=== PATIENT | female | born 1955 | race Caucasian/White ===

== ENCOUNTER 2017-07-16 09:31 | Emergency (ER) | payer OTHER | END 2017-07-16 09:40 | disposition left against medical advice (07) | LOC: CED 09:31 | DX: Z53.21 Procedure and treatment not carried out due to patient leaving prior to being seen by health care provider (principal) ==

== ENCOUNTER 2018-04-04 20:18 | Inpatient (IN) | payer OTHER ==
[2018-04-04] MEDS ORDERED: CEFEPIME HCL 2 GM in NS 100 ML IV ONE (20:42)
[2018-04-04] MEDS ORDERED: NS 2,000 ML IV ONE (20:42)
[2018-04-04] MEDS ORDERED: VANCOMYCIN 1.5 GM in D5W 250 ML IV ONE (20:44)
[2018-04-04] MEDS ORDERED: ACETAMINOPHEN 500 MG TAB PO ONE (20:45)
[2018-04-04] MEDS ORDERED: IBUPROFEN 800 MG TAB PO ONE (20:45)
--- NOTE | 2018-04-04 20:45 | EDPHY ---
H & P Stated Complaint: fever 103F today, hx RLE cellulitis - Personal History Tetanus Vaccine Date: WITHIN 10 YRS - Medical/Surgical History Hx Asthma: No Hx Chronic Respiratory Disease: No Hx Diabetes: No Hx Cardiac Disease: No Hx Renal Disease: No Hx Cirrhosis: No Hx Alcoholism: No Hx HIV/AIDS: No Hx Splenectomy or Spleen Trauma: No Other PMH: HTN, BREAST/UTERINE CA HX. - Social History Smoking Status: Never smoked Time Seen by Provider: 04/04/18 20:34 HPI/ROS: CHIEF COMPLAINT: Cellulitis right lower extremity HISTORY OF PRESENT ILLNESS: 62-year-old female remote history of uterine and breast cancer, history of recurrent right lower extremity cellulitis, followed by Dr. Cris Trevizo, complaining of new onset erythema in the past 24-48 hours to her right lower extremity. Went to urgent care today, was referred to the ER. She is complaining of fever, , myalgias. Denies: URI symptoms, chest pain , cough, rhinorrhea, headache REVIEW OF SYSTEMS: 10 systems reviewed and negative with the exception of the elements mentioned in the history of present illness PAST MEDICAL & SURGICAL HISTORY: Uterine and breast cancer. Chronic lymphedema right lower extremity SOCIAL HISTORY: Nonsmoker . 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 PHYSICAL EXAM (Prior to examination, patient consented to physical exam, hands were washed and my usual and customary physical exam procedures followed) 1) GENERAL: Well-developed, well-nourished, alert and oriented. Appears to be in no acute distress. Answering questions appropriately 2) HEAD: Normocephalic, atraumatic 3) HEENT: Pupils equal, round, reactive to light bilaterally. Sclera anicteric. Nasopharynx, oropharynx, clear, no lesions. Moist Mucous membranes. No tonsillar enlargement or exudate Ears bilaterally with normal tympanic membranes. No signs of otitis media otitis externa 4) NECK: Full range of motion, no meningeal signs. 5) LUNGS: Clear auscultation bilaterally, no wheezes, no rhonchi, no retractions. 6) HEART: Regular rate and rhythm, no murmur, no heave, no gallop. 7) ABDOMEN: No guarding, no rebound, no focal tenderness, negative McBurney's, negative Fitzgerald's, negative Rovsing's, negative peritoneal sign, 8) MUSCULOSKELETAL: Right lower extremity: Diffuse erythema induration, increased warmth. Soft compartments. No crepitus. DP PT pulses present and brisk. Asymmetrical edema noted. Moving all extremities, no focal areas of tenderness, no obvious trauma. No peripheral edema or discoloration. 9) BACK: No CVA tenderness, no midline vertebral tenderness, no fluctuance, no step-off, no obvious trauma, no visual or palpable abnormality. 10) SKIN: No rash, no petechiae. 11) Psychiatric: Patient is oriented X 3, there is no agitation. DIFFERENTIAL DIAGNOSIS: In no particular order including but not limited to cellulitis, necrotizing fasciitis, abscess (Kayla,Mathieu Shana) Constitutional: Initial Vital Signs Temperature (C) 39.4 C H 04/04/18 20:27 Heart Rate 122 H 04/04/18 20:27 Respiratory Rate 20 04/04/18 20:27 Blood Pressure 113/80 04/04/18 20:27 O2 Sat (%) 96 04/04/18 20:27 O2 Delivery Mode Room Air Allergies/Adverse Reactions: carbamazepine [From Tegretol] Allergy (Mild, Verified 04/04/18 20:49) Home Medications: Medication Instructions Recorded Lisinopril/Hctz 10/12.5 mg 1 ea PO DAILY 12/31/09 [Zestoretic/Prinzide 10/12.5MG (*)] Cephalexin [Cephalexin] 500 mg PO Q6H 04/04/18 Herbals/Supplements -Info Only 1 ea PO DAILY 04/04/18 Medical Decision Making ED Course/Re-evaluation: Patient has severe sepsis. I saw her at 9:20 p.m.. I obtained history of recurrent leg cellulitis is the patient has chronic lymphedema after cancer treatments. Leg has become red over the last 24 hr. She tells me fever to 104 degrees. She had chills and rigors. She has no respiratory symptoms. Examination of the leg shows extensive swelling and erythema from foot to mid thigh. Vital signs show temp 39.4 and tachycardia. IV reviewed the laboratory findings with the patient. We discussed treatment plan and antibiotics. We discussed recommendation for admission. She expresses understanding and agreement. Blood pressure currently 126/61 with heart rate 104 after 30 milliliter/kilogram fluid bolus (Tanika,John S) 8:47 p.m.: Care of patient under supervision of secondary supervising physician Dr John Sagastume with whom I discussed case at this time. 9:19 pm : Lactate 2.3. Severe sepsis to cleared at this time. Care patient transferred to Dr. John Sagastume at this time. Consultation with hospitalist Dr. Jacinto since who will admit patient. Patient has been given cefuroxime, vancomycin, IV fluids. She is mentating clearly. (Mathieu Garza) Differential Diagnosis: This appears to be severe sepsis and cellulitis. Recurrent cellulitis with chronic lymphedema of her right lower extremity (John Sagastume) - Data Points Laboratory Results: Laboratory Results 04/04/18 20:50 04/04/18 20:50 04/04/18 04/04/18 04/04/18 20:50 20:50 20:50 WBC 9.08 10^3/uL 10^3/uL (3.80-9.50) RBC 4.00 10^6/uL L 10^6/uL (4.18-5.33) Hgb 13.3 g/dL g/dL (12.6-16.3) Hct 38.4 % % (38.0-47.0) MCV 96.0 fL fL (81.5-99.8) MCH 33.3 pg pg (27.9-34.1) MCHC 34.6 g/dL g/dL (32.4-36.7) RDW 13.4 % % (11.5-15.2) Plt Count 135 10^3/uL L 10^3/uL (150-400) MPV 10.6 fL fL (8.7-11.7) Neut % (Auto) Pending Lymph % (Auto) Pending [place] % (Auto) Pending Eos % (Auto) Pending Baso % (Auto) Pending Nucleat RBC Rel Count Pending Absolute Neuts (auto) Pending Absolute Lymphs (auto) Pending Absolute Monos (auto) Pending Absolute Eos (auto) Pending Absolute Basos (auto) Pending Absolute Nucleated RBC Pending Immature Gran % Pending Immature Gran # Pending Platelet Estimate Pending PT 12.7 SEC SEC (12.0-15.0) INR 0.93 (0.83-1.16) APTT 28.1 SEC SEC (23.0-38.0) VBG Lactic Acid Sodium 129 mEq/L L mEq/L (135-145) Potassium 3.9 mEq/L mEq/L (3.5-5.2) Chloride 100 mEq/L mEq/L (97-110) Carbon Dioxide 23 mEq/l mEq/l (22-31) Anion Gap 6 mEq/L mEq/L (6-14) BUN 20 mg/dL mg/dL (7-23) Creatinine 0.8 mg/dL mg/dL (0.6-1.0) Estimated GFR > 60 Glucose 128 mg/dL H mg/dL (70-100) Calcium 8.9 mg/dL mg/dL (8.5-10.4) Total Bilirubin 1.4 mg/dL mg/dL (0.1-1.4) 04/04/18 20:50 WBC RBC Hgb Hct MCV MCH MCHC RDW Plt Count MPV Neut % (Auto) Lymph % (Auto) [place] % (Auto) Eos % (Auto) Baso % (Auto) Nucleat RBC Rel Count Absolute Neuts (auto) Absolute Lymphs (auto) Absolute Monos (auto) Absolute Eos (auto) Absolute Basos (auto) Absolute Nucleated RBC Immature Gran % Immature Gran # Platelet Estimate PT INR APTT VBG Lactic Acid 2.3 mmol/L H mmol/L (0.7-2.1) Sodium Potassium Chloride Carbon Dioxide Anion Gap BUN Creatinine Estimated GFR Glucose Calcium Total Bilirubin Medications Given: Discontinued Medications Acetaminophen (Tylenol) 1,000 mg PO EDNOW ONE Stop: 04/04/18 20:46 Last Admin: 04/04/18 21:04 Dose: 1,000 mg Cefepime HCl 2 gm/ Sodium (Chloride) 100 mls @ 200 mls/hr IV EDNOW ONE PRN Reason: Protocol Stop: 04/04/18 21:11 Last Admin: 04/04/18 21:21 Dose: 100 mls Sodium Chloride (Ns) 2,000 mls @ 4,000 mls/hr 30 ml/kg infuse over 30 min ( 2000 ml) IV EDNOW ONE PRN Reason: Protocol Stop: 04/04/18 21:11 Last Admin: 04/04/18 21:04 Dose: 2,000 mls Ibuprofen (Motrin) 800 mg PO EDNOW ONE Stop: 04/04/18 20:46 Last Admin: 04/04/18 21:04 Dose: 800 mg Departure - Departure Disposition: [facility] Inpatient Acute Clinical Impression: Severe sepsis Cellulitis Qualifiers: Site of cellulitis: extremity Site of cellulitis of extremity: lower extremity Laterality: right Qualified Code(s): L03.115 - Cellulitis of right lower limb Condition: Fair
[2018-04-04 21:17] LABS: INR 0.93 (0.83-1.16); PLATELET COUNT 135 10^3/uL (150-400); PROTIME(PATIENT) 12.7 SEC (12.0-15.0)
[2018-04-04] MEDS ORDERED: ONDANSETRON DISINTEGRATING 4 MG TAB PO PRN (22:24)
[2018-04-04] MEDS ORDERED: ONDANSETRON 4 MG/2 ML VIAL IVP PRN (22:24)
--- NOTE | 2018-04-04 23:31 | PDGENHP ---
History and Physical - Chief Complaint R leg redness - History of Present Illness 62 yo F w/ hx of HTN, breast/uterine CA and LE lymphedema leading to recurrent RLE infections presents w/ R leg redness, fevers, and chills. The patient tells me her symptoms started this morning when she noticed R leg redness. Her symptoms progressed quickly to involve fever and shaking chills. The redness has progressed to involve the majority of her R leg, which she tells me is usual for bouts of cellulitis for her. Her last two bouts were in March and December of 2017. Both of these episodes were treated with oral Augmentin. She denies prior hx of MRSA. In the ED her evaluation was notable for tachycardia, fever, and elevated lactate. At the time of my evaluation she is feeling improved with minimal symptoms of fever/warmth. Case discussed with Dr. Mccormick; records reviewed and summarized above. History Information - Allergies/Home Medication List Allergies/Adverse Reactions: carbamazepine [From Tegretol] Allergy (Mild, Verified 04/04/18 20:49) Home Medications: Lisinopril/Hctz 10/12.5 mg [Zestoretic/Prinzide 10/12.5MG (*)] 1 ea PO DAILY 31/12 [Last Taken 04/04/18] Cephalexin [Cephalexin] 500 mg PO Q6H 04/04/18 [Last Taken 04/04/18 12:00] Herbals/Supplements -Info Only 1 ea PO DAILY 04/04/18 [Last Taken 04/04/18] I have personally reviewed and updated: family history, medical history - Past Medical History cancer, hypertension Additional medical history: Lymphedema. Recurrent RLE infections - Surgical History Reports: hysterectomy Additional surgical history: Lumpectomy - Family History Positive for: cancer - Social History Smoking Status: Never smoked Review of Systems Review of Systems: ROS: 10pt was reviewed & negative except for what was stated in HPI & below Physical Exam Physical Exam: Temp Pulse Resp BP Pulse Ox 37.6 C 100 16 120/47 L 93 04/04/18 22:59 04/04/18 22:59 04/04/18 22:59 04/04/18 22:59 04/04/18 22:59 Constitutional: no apparent distress, appears nourished Eyes: PERRL, EOMI Ears, Nose, Mouth, Throat: moist mucous membranes, no oral mucosal ulcers Cardiovascular: no murmur, rub, or gallop, tachycardia Respiratory: no respiratory distress, clear to auscultation Gastrointestinal: normoactive bowel sounds, soft, non-tender abdomen Skin: warm, no fluctuance, erythema (R leg to upper thigh) Musculoskeletal: full muscle strength, no muscle tenderness Neurologic: AAOx3, CN II-XII Intact Psychiatric: interacting appropriately, not anxious Lab Data & Imaging Review 04/04/18 20:50 04/04/18 20:50 WBC 9.08 10^3/uL (3.80-9.50) 04/04/18 20:50 RBC 4.00 10^6/uL (4.18-5.33) L 04/04/18 20:50 Hgb 13.3 g/dL (12.6-16.3) 04/04/18 20:50 Hct 38.4 % (38.0-47.0) 04/04/18 20:50 MCV 96.0 fL (81.5-99.8) 04/04/18 20:50 MCH 33.3 pg (27.9-34.1) 04/04/18 20:50 MCHC 34.6 g/dL (32.4-36.7) 04/04/18 20:50 RDW 13.4 % (11.5-15.2) 04/04/18 20:50 Plt Count 135 10^3/uL (150-400) L 04/04/18 20:50 MPV 10.6 fL (8.7-11.7) 04/04/18 20:50 Neut % (Auto) Not Reported 04/04/18 20:50 Lymph % (Auto) Not Reported 04/04/18 20:50 [place] % (Auto) Not Reported 04/04/18 20:50 Eos % (Auto) Not Reported 04/04/18 20:50 Baso % (Auto) Not Reported 04/04/18 20:50 Nucleat RBC Rel Count Not Reported 04/04/18 20:50 Absolute Neuts (auto) Not Reported 04/04/18 20:50 Absolute Lymphs (auto) Not Reported 04/04/18 20:50 Absolute Monos (auto) Not Reported 04/04/18 20:50 Absolute Eos (auto) Not Reported 04/04/18 20:50 Absolute Basos (auto) Not Reported 04/04/18 20:50 Absolute Nucleated RBC Not Reported 04/04/18 20:50 Immature Gran % Not Reported 04/04/18 20:50 Seg Neutrophils % 76.0 % 04/04/18 20:50 Band Neutrophils % 14.0 % 04/04/18 20:50 Lymphocytes % 8.0 % 04/04/18 20:50 Monocytes % 1.0 % 04/04/18 20:50 Eosinophils % 0.0 % 04/04/18 20:50 Basophils % 1.0 % 04/04/18 20:50 Metamyelocytes % 0.0 % 04/04/18 20:50 Myelocytes % 0.0 % 04/04/18 20:50 Promyelocytes % 0.0 % 04/04/18 20:50 Blast Cells % 0.0 % 04/04/18 20:50 Immature Gran # Not Reported 04/04/18 20:50 Absolute Seg Neuts 6.90 10^3/uL (1.70-6.50) H 04/04/18 20:50 Absolute Band Neuts 1.27 10^3/uL (0.00-0.70) H 04/04/18 20:50 Absolute Lymphocytes 0.73 10^3/uL (1.00-3.00) L 04/04/18 20:50 Absolute Monocytes 0.09 10^3/uL (0.30-0.80) L 04/04/18 20:50 Absolute Eosinophils 0.00 10^3/uL (0.03-0.40) L 04/04/18 20:50 Absolute Basophils 0.09 10^3/uL (0.02-0.10) 04/04/18 20:50 Absolute Metamyelocyte 0.00 10^3/mL (0.00-0.00) 04/04/18 20:50 Absolute Myelocytes 0.00 10^3/mL (0.00-0.00) 04/04/18 20:50 Absolute Promyelocytes 0.00 10^3/uL (0.00-0.00) 04/04/18 20:50 Absolute Plasma Cells 0.00 10^3/uL (0.00-0.00) 04/04/18 20:50 Nucleated RBCs 0 /100 WBC (0-0) 04/04/18 20:50 Absolute Blast Cells 0.00 10^3/uL (0.00-0.00) 04/04/18 20:50 Plasma Cells % 0.0 % 04/04/18 20:50 Toxic Granulation PRESENT H 04/04/18 20:50 Toxic Vacuolation PRESENT H 04/04/18 20:50 Dohle Bodies PRESENT H 04/04/18 20:50 Platelet Estimate DECREASED (ADEQ) L 04/04/18 20:50 Tear Drop Cells 1+ H 04/04/18 20:50 Keratocytes 1+ H 04/04/18 20:50 Schistocytes 1+ H 04/04/18 20:50 PT 12.7 SEC (12.0-15.0) 04/04/18 20:50 INR 0.93 (0.83-1.16) 04/04/18 20:50 APTT 28.1 SEC (23.0-38.0) 04/04/18 20:50 VBG Lactic Acid 1.3 mmol/L (0.7-2.1) 04/04/18 22:23 Sodium 129 mEq/L (135-145) L 04/04/18 20:50 Potassium 3.9 mEq/L (3.5-5.2) 04/04/18 20:50 Chloride 100 mEq/L (97-110) 04/04/18 20:50 Carbon Dioxide 23 mEq/l (22-31) 04/04/18 20:50 Anion Gap 6 mEq/L (6-14) 04/04/18 20:50 BUN 20 mg/dL (7-23) 04/04/18 20:50 Creatinine 0.8 mg/dL (0.6-1.0) 04/04/18 20:50 Estimated GFR > 60 04/04/18 20:50 Glucose 128 mg/dL (70-100) H 04/04/18 20:50 Calcium 8.9 mg/dL (8.5-10.4) 04/04/18 20:50 Total Bilirubin 1.4 mg/dL (0.1-1.4) 04/04/18 20:50 Assessment & Plan Assessment: 62 yo F w/ hx of HTN, breast/uterine CA and LE lymphedema leading to recurrent RLE infections presents w/ sepsis 2/2 RLE cellulitis. Plan: 1. Sepsis 2/2 RLE cellulitis - Sepsis per 2/4 SIRS criteria (HR, T) present on admission. Source is RLE cellulitis, which is a recurring issue for her likely due to chronic lymphedema. Previous bouts of cellulitis have been treated successfully with Augmentin. She is followed by Dr. Cris Trevizo. - S/p Cefuroxime and Vancomycin in the ED - Will treat with Cefazolin 2 g IV q8h noting no prior history of resistant infections, broaden if worsening - Blood cultures pending - S/p 30 ml/kg IVF bolus, will continue mIVF overnight 2. HTN - Hold home medications in setting of acute infection, restart as indicated. 3. Hx breast CA - S/p lumpectomy and chemotherapy. 4. Hx uterine CA - S/p hysterectomy. Diet - Regular Code - Full Ppx - LMWH Dispo - Admit under observation status
[2018-04-04] MEDS: NS 1,000 ML IV SCH (23:57)
[2018-04-05] MEDS: ceFAZolin 2 GM/DEXTROSE 100 ML IV SCH ×3 (05:17→21:41)
[2018-04-05 06:19] LABS: PLATELET COUNT 110 10^3/uL (150-400)
[2018-04-05] MEDS: ENOXAPARIN 40 MG/0.4 ML SYR SC SCH (08:26)
[2018-04-05] MEDS: ACETAMINOPHEN 325 MG TAB PO PRN ×2 (09:27→18:30)
[2018-04-05] MEDS: LORazepam 0.5 MG TAB PO PRN ×2 (10:24→21:41)
[2018-04-05] MEDS: IBUPROFEN 600 MG TAB PO PRN ×2 (10:24→18:29)
--- NOTE | 2018-04-05 12:48 | HOSPPROG ---
Hospitalist Progress Note Assessment/Plan: 62 yo F w/ hx of HTN, breast/uterine CA and LE lymphedema leading to recurrent RLE infections presents w/ sepsis 2/2 RLE cellulitis. Plan: 1. Sepsis 2/2 RLE cellulitis - Sepsis per 2/4 SIRS criteria (HR, T) present on admission. Source is RLE cellulitis, which is a recurring issue for her likely due to chronic lymphedema. Previous bouts of cellulitis have been treated successfully with Augmentin. She is followed by Dr. Cris Trevizo. - S/p Cefuroxime and Vancomycin in the ED - Will treat with Cefazolin 2 g IV q8h noting no prior history of resistant infections, broaden if worsening - Blood cultures growing Group B Strep as below - S/p 30 ml/kg IVF bolus, will continue mIVF 2. Bacteremia - Group B Strep growing in blood cultures - Continue Cefazolin for now - ID consulted for further evaluation and management - Repeat blood cultures tomorrow AM 3. HTN - Hold home medications in setting of acute infection, restart as indicated. 4. Hx breast CA - S/p lumpectomy and chemotherapy. 5. Hx uterine CA - S/p hysterectomy. Diet - Regular Code - Full Ppx - LMWH Dispo - Pending clinical course Subjective: Patent reports some improvement in RLE swelling and redness, still quite painful Objective: Vital Signs Temp Pulse Resp BP Pulse Ox 37.1 C 89 18 113/58 L 94 04/05/18 11:36 04/05/18 11:36 04/05/18 11:36 04/05/18 11:36 04/05/18 11:36 Laboratory Results 04/05/18 05:22 04/05/18 05:22 04/04/18 04/05/18 04/06/18 05:59 05:59 05:59 Intake Total 2840 Balance 2840 PT 12.7 SEC (12.0-15.0) 04/04/18 20:50 INR 0.93 (0.83-1.16) 04/04/18 20:50 - Physical Exam Constitutional: no apparent distress Eyes: PERRL Ears, Nose, Mouth, Throat: moist mucous membranes Cardiovascular: tachycardia Respiratory: no respiratory distress Gastrointestinal: soft, non-tender abdomen Genitourinary: no bladder fullness Skin: warm, erythema, rash Musculoskeletal: full muscle strength Neurologic: AAOx3 Psychiatric: interacting appropriately Lymph, Heme, Immunologic: No lymphangitic streaking ICD10 Worksheet Patient Problems: Problems Problem Status Onset Cellulitis Acute Severe sepsis Acute
--- NOTE | 2018-04-05 13:06 | ASMTCMCOM ---
CM Note CM Note Notes: Patient admitted w RLE cellulitis which has been a recurrent problem for her r/t chronic lymphadema. She is followed by Dr Trevizo at [facility]. ID will be consulted during this admission. Patient is normally independent and lives with her . I do not anticipate any d/c needs, but CM is available should they arise. Date Signed: 04/05/2018 01:05 PM Electronically Signed By:Jenifer Muller RN
[2018-04-05] MEDS: NS 1,000 ML IV SCH (13:25)
--- NOTE | 2018-04-05 14:33 | PDMN ---
Medical Necessity Medical necessity: Change to inpt as of 04/05/18 @ 13:19 per MD order and MCG M- 70, Cellulitis, A-2 days. 62 y/o w/hx of chronic lymphedema and recurrent RLE infections admitted w/sepsis sec to RLE cellulitis. Upgraded to inpt for bacteremia: group B strep growing in bl cultures. IVF, IV ABX's, ID consult, repeat bl cultures tomorrow. Est LOS>2MN for ongoing eval/management of above.
--- NOTE | 2018-04-05 16:49 | PDCONSULT ---
[employer] Note: Infectious Diseases Consult Note Impression: 1. Bloodstream infection with group B strep secondary to right lower extremity cellulitis: Overall improvement with stable vital signs. Rapid onset with bloodstream infection atypical for her previous recurrences. Rapidity of onset with no known previous cardiac valvular disease and no murmur on exam makes endocarditis is very unlikely. No cardiac imaging indicated. 2. Right lower extremity cellulitis secondary to chronic lymphedema: Improved pain and decreased erythema. 3. Left shift of white blood cell count resolved 4. History of left breast cancer status post chemoradiation in 2012 5. History of uterine cancer resected 2002 Plan: 1. Continue cefazolin 2 g q.8h 2. Repeat blood cultures today 3. Discussed in detail potential antibiotic side effects to include antibiotic induced diarrhea, C diff colitis, rash, in bone marrow suppression. Godwin Denise MD Infectious Diseases Chief Complaint: Cellulitis with chills Requesting Provider: Dr. Rodriguez Reason for Referral: Consultation was requested by Dr. Rodriguez regarding antimicrobial management. HPI: Terrie mauro is a 62-year-old woman who presented to the ED within 24 hr of the sudden onset of shaking chills followed by right lower extremity warmth and bright redness. She was in her usual state of good health until the day prior to admission when she woke up at 5:00 a.m. And within 1 hr developed shaking chills. The chills resolved and she was able to go to work. While at work she experienced excessive fatigue and by 3:00 p.m. Was unsteady on her feet. She felt warm while at work but did not measure her temperature. She presented to an urgent care where she received a prescription for cephalexin of which she took a single dose. Urgent care advised her to present to the emergency department with any recurrence of fever which she did. Blood cultures from admission have grown group B strep. She notes that she feels better than the previous day but not back to normal. She notes no trauma to the right lower extremity or breaks in her skin, she does note a bruise on the dorsal aspect of her 2nd toe which is new and without a clear precipitant. She notes multiple episodes of right lower extremity cellulitis treated with oral antibiotics since her hysterectomy in 2002 after which she developed a right lower extremity lymphedema. She has never had a similar episode with the rapid onset of chills and has never had a blood stream infection in the past. She notes no known cardiac valvular disease. She has had a headache associated with her acute symptoms that is improved since admission, she does not typically suffer from headaches. No arthralgias or myalgias. Since admission no diarrhea, she did note nausea and 1 episode of emesis prior to admission. She has mild nausea remaining but has been able to eat and drink meals in the hospital. Past Medical History: Recurring right lower extremity cellulitis, left-sided breast cancer, hypertension, right lower extremity lymph edema Past Surgical History: Left breast lumpectomy, ULISES BSO Social History: Nonsmoker, no drug use Family History: No recurrent infections in any family members Allergies: Tegretol (rash) Medications: Reviewed in medical record and confirmed with patient. ROS: 10 organ systems reviewed; pertinent positives and negatives listed in the HPI, all other organ systems negative. Physical Exam: VS: Reviewed Gen: No acute distress; Breathing comfortably without exogenous oxygen; Able to speak in complete sentences Eyes: No conjunctival injection; No scleral icterus HENT: No gross deformities Neck: No limitation in range of motion Pulm: Breath sounds clear to the bases bilaterally; No wheeze, rhonchi, or rales CV: Normal S1 and S2; Regular rate and rhythm; No murmurs, rubs, or gallops; right lower extremity edema Abd: Not distended; Normo-active bowel sounds; Soft; Non-tender; no hepatosplenomegaly Skin: A full skin exam including bilateral upper extremities, bilateral lower extremities to the knees, face, neck, abdomen, chest, and back performed; Skin notable for bright erythema of the right lower extremity extending from the ankle proximally to the knee, erythema has receded from the drawn on out line, erythematous area remains tender to palpation, no areas of fluctuance or induration Lymph: Right inguinal tender lymphadenopathy MSK: Joints without erythema or edema; No gross limitation in range of motion Ext: No clubbing or cyanosis Neuro: Awake and alert Psych: Normal mood and affect Labs/Imaging: All microbiology testing (culture and non-culture) reviewed in [facility]. Personally reviewed and interpreted the images of the following radiographs: No imaging to review today. Cr: 0.5 eGFR (Cockcroft-Gault): Greater than 60 WBC: 6.84 (ANC 5.81; ALC 0.55) Antimicrobials: Cephazolin: 04/05/2018 Vancomycin: 04/04/2018 Cefepime: 04/04/2018 Ongoing monitoring for antimicrobial toxicity with: CBC, BMP.
[2018-04-06] MEDS: ACETAMINOPHEN 325 MG TAB PO PRN (03:44)
[2018-04-06] MEDS: IBUPROFEN 600 MG TAB PO PRN (03:44)
[2018-04-06] MEDS: ceFAZolin 2 GM/DEXTROSE 100 ML IV SCH (06:04)
[2018-04-06 06:05] LABS: PLATELET COUNT 113 10^3/uL (150-400)
[2018-04-06 07:53] VITALS: BP 129/64
--- NOTE | 2018-04-06 10:01 | PCMIDPN ---
Assessment/Plan: Assessment: 1. Group B strep bloodstream infection secondary to right lower extremity cellulitis: Overall improved with normalization of vital signs, afebrile since admission, 1 of 2 sets of blood cultures from admission positive, repeat blood cultures pending approximately 18 hr with no growth. Very low risk for endocarditis with a generally uncommon organism to cause endocarditis and rapid improvement, no need for cardiac imaging. Expect to send out on oral therapy, pending prior auth for linezolid. 2. Right lower extremity cellulitis: Improved but remains erythematous able to ambulate without significant pain. 3. Acute thrombocytopenia: Likely consequence of sepsis stable to improved 4. Acute anemia: Secondary to sepsis, likely to improve as the infection improves. 5. History of left-sided breast cancer status post chemoradiation in a lumpectomy. 6. History of endometrial cancer Plan: 1. Continue cefazolin while inpatient 2. Plan to start linezolid 600 mg p.o. Twice daily to complete a total of 14 days on discharge. Prior authorization process 3. Follow-up arranged with Dr. Trevizo [facility] 4. Discussed in details potential side effects of linezolid including thrombocytopenia, antibiotics are seated diarrhea, discharge rash, and C diff colitis 04/06/18 10:05 Subjective: No fever or chills overnight. Mild nausea this morning no emesis, the breakfast without GI complaints. No diarrhea. Right lower extremity pain improved but not resolved. Able to ambulate with minimal pain. No shortness of breath. Would like to go home today. Objective: Vital Signs Temp Pulse Resp BP Pulse Ox 37.1 C 81 16 129/64 H 93 04/06/18 07:49 04/06/18 07:49 04/06/18 07:49 04/06/18 07:49 04/06/18 07:49 Laboratory Results 04/06/18 04:54 04/06/18 04:54 04/05/18 04/06/18 04/07/18 05:59 05:59 05:59 Intake Total 1200 Balance 1200 Microbiology 04/04/18 20:50 Blood Blood Panel (PCR) - Final Strep Agalactiae Group B 04/04/18 20:50 Blood Blood Culture - Preliminary 04/04/18 20:50 Blood Gram Positive Cocci Chains Laboratory Tests 04/05/18 04/06/18 05:22 04:54 WBC 6.84 7.13 Plt Count 110 L 113 L Absolute Seg Neuts 5.81 5.56 Absolute Band Neuts 0.48 1.28 H Absolute Lymphocytes 0.21 L - Physical Exam General Appearance: alert, no apparent distress, non-toxic EENT: No scleral icterus Respiratory: lungs clear, normal breath sounds Neck: full range of motion, supple Cardiac/Chest: regular rate, rhythm, No tachycardia, No diastolic murmur, No systolic murmur Extremities: normal inspection Abdomen: normal bowel sounds, non-tender, soft, No distended, No hepatomegaly, No splenomegaly Skin: erythema (Right lower extremity erythema, mild tenderness to palpation, no areas of induration or fluctuance. Positive erythema continues to request from the drawn line from admission. Skin wrinkling over the erythematous area.) Neuro/Psych: alert, normal mood/affect - Time Spent With Patient Time Spent with Patient: greater than 35 minutes (Greater than 35 min spent in the care of this patient and education and coordination of care with an 50% this time was [id number].) Time Spent with Patient: Greater than 35 minutes spent on this patients care, greater than 50% of time spent counseling, educating, and coordinating care regarding the above mentioned plan. ICD10 Worksheet Patient Problems: Problems Problem Status Onset Cellulitis Acute Severe sepsis Acute
[2018-04-06] MEDS: ENOXAPARIN 40 MG/0.4 ML SYR SC SCH (11:30)
--- NOTE | 2018-04-06 12:32 | ASMTLACE ---
LACE Length of stay for Answers: 1 day current admission Acuity / Level of Answers: Yes Care: Did the patient have an inpatient admission? Comorbidities - select Answers: Other Notes: HTN; Hx of uterine and all that apply breast cancer # of Emergency department Answers: 1-2 visits in the last 6 months Score: 6 Date Signed: 04/06/2018 12:31 PM Electronically Signed By:Jenifer Muller RN
== END 2018-04-06 15:39 | disposition home or self-care (01) | DRG 872 ==
LOC: F3E 23:13 → OBSVTOIN 04-05 13:19
PROVIDERS: ADMIT Internal Medicine; ATTEND Family Medicine
DX: A40.1 Sepsis due to streptococcus, group B (principal); L03.115 Cellulitis of right lower limb; I10 Essential (primary) hypertension; D69.6 Thrombocytopenia, unspecified; D64.9 Anemia, unspecified; Z85.3 Personal history of malignant neoplasm of breast; Z85.42 Personal history of malignant neoplasm of other parts of uterus; Z90.710 Acquired absence of both cervix and uterus
CPT/HCPCS: 96365; G0378; J0690; J0692; J1650; J3370